=== PATIENT | female | born 1955 | race Two or more races ===

== ENCOUNTER → 2021-08-03 | Emergency (ER) | payer OTHER ==
[~2021-08-03] VITALS: Ht 154.9 cm; Wt 77.1 kg
[~2021-08-03] MED LIST: HORIZANT300 MG PO; LIPITOR40 M1 PO; METFORMIN HCL1000 M2 PO; ORPHENADRINE C100 MG PO; ZOLOFT25 MG PO
== END | disposition home or self-care (01) ==
LOC: ER 17:40
DX: M62.838 Other muscle spasm (principal)